=== PATIENT | male | born 1980 ===

== ENCOUNTER 2017-12-10 11:10 | Emergency (ER) | payer SELFPAY ==
[2017-12-10 13:26] VITALS: BP 120/71
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
--- NOTE | 2017-12-11 16:07 | ED ---
Course/Dx - Course Course Of Treatment: CALLED 12/11/17 AT 15:30. NO ANSWER, LEFT MESSAGE TO CALL [phone] Discharge - Sign-Out/Discharge Documenting (check all that apply): Post-Discharge Follow Up - Discharge Plan Condition: Stable Disposition: HOME Patient Education Materials: HIV Transmission (ED), Postexposure Prophylaxis ( ED) Referrals: No Primary Care Phys,NOPCP [Primary Care Provider] - Additional Instructions: WE DISCUSSED: 1. I have included information about HIV transmission and exposure. 2. Recheck at any time for new symptoms. 3. Recheck HIV status at 3 and 6 months. 4. Follow up on HIV status of patient whose blood was the source of exposure. 5. Your blood has been drawn and the results should be back in 2 days. 6. Call us for any questions or concerns. - Billing Disposition and Condition Condition: STABLE Disposition: HOME
== END 2017-12-10 13:52 | disposition home or self-care (01) ==
LOC: UCEAST 11:10
DX: Z77.21 Contact with and (suspected) exposure to potentially hazardous body fluids (principal); Z11.4 Encounter for screening for human immunodeficiency virus [HIV]; F17.210 Nicotine dependence, cigarettes, uncomplicated
CPT/HCPCS: 36415; 86703; 86706; 86803; 87340; 99201; G0463